=== PATIENT | male | born 1950 | race Hispanic/Latino ===

== ENCOUNTER 2017-06-26 07:43 | Outpatient (CLI) | payer MEDICARE ==
--- NOTE | 2017-06-27 08:36 | Nuclear Medicine Report ---
NUCLEAR MEDICINE WHOLE-BODY BONE SCAN: 06/26/17 CLINICAL: Esophageal cancer. COMPARISON: None. TECHNIQUE: 25.0-millicuries technetium 99m MDP was injected intravenously and whole body scans were obtained at 3 hours. FINDINGS: Normal distribution of radionuclide in the skeleton and soft tissues except for mild focal uptake in the right hand is rule likely related to arthritis.. No suspicious uptake. IMPRESSION: Negative study
== END 2017-06-26 07:44 | disposition home or self-care (01) ==
LOC: NM 07:43
PROVIDERS: ATTEND Internal Medicine Hematology & Oncology
DX: C15.4 Malignant neoplasm of middle third of esophagus (principal); R91.8 Other nonspecific abnormal finding of lung field
CPT/HCPCS: 78306; A9503